=== PATIENT | female | born 1990 | race Caucasian/White ===

== ENCOUNTER 2019-04-26 14:18 | Emergency (ER) | payer SELFPAY ==
--- NOTE | 2019-04-26 15:07 | ER Document Report ---
ED Medical Screen (RME) - General Chief Complaint: Allergic Reaction Stated Complaint: POSSIBLE ALLERGIC REACTION Time Seen by Provider: 04/26/19 14:56 Primary Care Provider: STEPH STONE MD [Primary Care Provider] - Follow up as needed Notes: 28-year-old female presents the emergency department with concern for an allergic reaction. Patient states that she had a scratch on her external labia and put some bacitracin ointment on it and it became red and swollen. Time currently, she put some johns in and sprayed on yesterday and got a systemic rash all over her skin that has since mostly resolved. She is otherwise asymptomatic but is concerned that she needs a different type of treatment for the irritation on her vagina. No fevers or chills, no nausea or vomiting, no acute shortness of breath or stridor. Exam: Well-appearing in no acute distress, exam deferred in triage area, skin is clear with no evidence of systemic rash I have greeted and performed a rapid initial assessment of this patient. A comprehensive ED assessment and evaluation of the patient, analysis of test results and completion of medical decision making process will be conducted by an additional ED providers. TRAVEL OUTSIDE OF THE [place] IN LAST 30 DAYS: No - Related Data Allergies/Adverse Reactions: No Known Allergies Allergy (Unverified 04/26/19 14:53) Home Medications: ibu and vitamins Past Medical History - Social History Chew tobacco use (# tins/day): No Frequency of alcohol use: None Drug Abuse: None Physical Exam - Vital signs Vitals: Temp Pulse Resp BP Pulse Ox 97.6 F 110 H 20 129/61 H 100 04/26/19 14:24 04/26/19 14:24 04/26/19 14:24 04/26/19 14:24 04/26/19 14:24 Course - Vital Signs Vital signs: Temp Pulse Resp BP Pulse Ox 97.6 F 110 H 20 129/61 H 100 04/26/19 14:24 04/26/19 14:24 04/26/19 14:24 04/26/19 14:24 04/26/19 14:24 Doctor's Discharge - Discharge Referrals: STEPH STONE MD [Primary Care Provider] - Follow up as needed
--- NOTE | 2019-04-26 18:23 | ER Document Report ---
ED Allergic Reaction - General Chief Complaint: Allergic Reaction Stated Complaint: POSSIBLE ALLERGIC REACTION Time Seen by Provider: 04/26/19 14:56 Primary Care Provider: STEPH STONE MD [COMMUNITY BASED STAFF] - Follow up as needed TRAVEL OUTSIDE OF THE [place] IN LAST 30 DAYS: No - HPI Notes: 28-year-old female to the emergency department with complaints of allergic reaction that started about 1 PM. She states that she applied bacitracin to her vagina where she had a cut and shortly after that she developed hives. She states she started to swell within her vagina and then she had hives all over her body. She states that she has several environmental allergies including cats, mites, etc. She states that she had an old prescription for EpiPen so she gave herself that EpiPen. She states that since taking EpiPen her symptoms have gotten a lot better. She denies any wheezing, diarrhea, nausea, vomiting, shortness of breath, cough, or sensation of throat closing. She states that her hives have nearly gone away since giving herself the EpiPen - Related Data Allergies/Adverse Reactions: No Known Allergies Allergy (Unverified 04/26/19 14:53) Home Medications: ibu and vitamins Past Medical History - General Information source: Patient - Social History Smoking Status: Never Smoker Chew tobacco use (# tins/day): No Frequency of alcohol use: None Drug Abuse: None Family History: Reviewed & Not Pertinent Patient has suicidal ideation: No Patient has homicidal ideation: No Review of Systems - Review of Systems Constitutional: denies: Chills, Fever EENT: No symptoms reported Cardiovascular: denies: Chest pain, Palpitations, Heart racing, Orthopnea, Dyspnea, Syncope Respiratory: denies: Cough, Short of breath, Wheezing Gastrointestinal: denies: Abdominal pain, Diarrhea, Nausea, Vomiting Female Genitourinary: denies: Vaginal discharge, Vaginal bleeding, Vaginal odor Skin: See HPI, Rash Neurological/Psychological: No symptoms reported -: Yes All other systems reviewed and negative Physical Exam - Vital signs Vitals: Temp Pulse Resp BP Pulse Ox 97.6 F 110 H 20 129/61 H 100 04/26/19 14:24 04/26/19 14:24 04/26/19 14:24 04/26/19 14:24 04/26/19 14:24 Interpretation: Normal - General General appearance: Appears well, Alert In distress: None - HEENT Head: Normocephalic, Atraumatic Eyes: Normal Pupils: PERRL Ears: Normal External canal: Normal Tympanic membrane: Normal Sinus: Normal Nasal: Normal Mouth/Lips: Normal. No: Angioedema Mucous membranes: Normal Pharynx: Normal. No: Erythema, Exudate, Uvular edema, Potential airway comprom. Neck: Normal, Supple. No: Lymphadenopathy, Meningismus - Respiratory Respiratory status: No respiratory distress. No: Respiratory distress, Depressed respirations, Labored, Tachypnea, Tripod position Chest status: Nontender Breath sounds: Normal. No: Productive cough, Rales, Rhonchi, Stridor, Wheezing Chest palpation: Normal - Cardiovascular Rhythm: Regular Heart sounds: Normal auscultation Murmur: No - Abdominal Inspection: Normal Distension: No distension Bowel sounds: Normal Tenderness: Nontender Organomegaly: No organomegaly - Back Back: Normal, Nontender. No: CVA tenderness, Vertebra tenderness - Neurological Neuro grossly intact: Yes Cognition: Normal Orientation: AAOx4 Iggy Coma Scale Eye Opening: Spontaneous Iggy Coma Scale Verbal: Oriented [place] Coma Scale Motor: Obeys Commands [place] Coma Scale Total: 15 Speech: Normal Motor strength normal: LUE, RUE, LLE, RLE Sensory: Normal - Psychological Associated symptoms: Normal mood, Flat affect - Skin Skin Temperature: Warm Skin Moisture: Dry Skin irregularity: Rash - There is faint evidence of mild allergic dermatitis to bilateral arms. Inspection of the vagina does not show any swelling, cut, rash, hives. Course - Re-evaluation Re-evalutation: 04/26/19 Impression: Allergic reaction. Apparently much better since giving herself EpiPen about 1 PM. She has been monitored in the department for 4 hours since she gave herself EpiPen. Her vital signs are stable and she has no evidence of acute anaphylaxis. She states that she feels well. Will discharge home. We will give her a short burst of steroids and refill her EpiPen. Encouraged to return if any worsening symptoms. Urged not to use bacitracin cream again. - Vital Signs Vital signs: Temp Pulse Resp BP Pulse Ox 99.0 F 110 H 20 98/53 L 99 04/26/19 18:58 04/26/19 14:24 04/26/19 14:24 04/26/19 18:58 04/26/19 19:00 04/26/19 Selected Entries 04/26/19 04/26/19 18:00 18:58 Temperature 99.0 F Heart Rate ( 86 86 Monitors) Blood Pressure 110/64 98/53 L Blood Pressure 79 68 Mean O2 Sat by Pulse 100 100 Oximetry Discharge - Discharge Clinical Impression: Allergic reaction Condition: Stable Disposition: HOME, SELF-CARE Instructions: Acute Allergic Reaction ([facility]) Prescriptions: Prednisone [Deltasone 20 mg Tablet] 2 tab PO DAILY 6 Days tablet Epinephrine [Epipen] 0.3 mg IJ PRN PRN #1 [email or web address] PRN Reason: Referrals: STEPH STONE MD [COMMUNITY BASED STAFF] - Follow up as needed
[2019-04-26 19:04] VITALS: BP 98/53
== END 2019-04-26 19:05 | disposition home or self-care (01) ==
LOC: ER 14:18
DX: T78.40XA Allergy, unspecified, initial encounter (principal); R21 Rash and other nonspecific skin eruption; X58.XXXA Exposure to other specified factors, initial encounter
CPT/HCPCS: 99283